=== PATIENT | female | born 1975 | race Hispanic/Latino ===

== ENCOUNTER → 2016-09-17 | Outpatient (CLI) | payer OTHER ==
[~2016-09-17] MED LIST: AC325T PO; AMOX500C2 PO; CLOM25CA2 PO; CLOMID PO; CYAN100053 IJ; DEXT1DRO8 OU; FAMO20TA13 PO; FNT25TD TD; GABA600T2 PO; GBPN300C PO; LD5PT TOP; LISI10TA2 PO; LISI1TAB6 PO; LISI40TA PO; LORA2ORA4 PO; LVT.05T PO; MAGN800O PO; METF-472 PO; METO100T PO; MTF500T PO; MULT-608 PO; NYST1000 PO; OXC5T PO; PHEN37.555 PO; POTA10CA43 PO; SENN1TAB76 PO; SPIR100T28 PO; ZOLP10TA5 PO
--- NOTE | 2016-09-17 13:12 | Diagnostic Imaging Report ---
PROCEDURE: CT abdomen and pelvis without contrast. TECHNIQUE: Multiple contiguous axial images were obtained through the abdomen and pelvis without the use of intravenous contrast. INDICATION: Right lower quadrant abdominal pain. Hypoactive bowel sounds. COMPARISON: 08/15/2011. FINDINGS: Included views of the lung bases are unremarkable. CT abdomen: Normal appendix is identified. Small bowel loops are nondistended. There is somewhat thickened appearance of the wall of the distal tip of the cecum where it measures approximately 7-8 mm in thickness. There is cholelithiasis (image 23, series 2). Faint nonobstructive renal calculus is noted within the inferior pole of the left kidney. Hypodense cyst is also noted on the left. Otherwise, the kidneys, spleen, liver, and pancreas have a normal noncontrast CT appearance. There is small amount of free fluid within the lower abdomen extending into the pelvis. There is no loculated fluid collection or free air. No abnormal mesenteric or retroperitoneal adenopathy is seen. Bony structures show no acute abnormalities. CT pelvis: Large masslike structure is identified extending from the posterior left lateral wall of the uterus. It measures approximately 6.9 x 7.2 cm on today's exam. This is increased in size compared to 3.4 x 3.2 cm on prior study. Findings are likely on the basis of large fibroid. The urinary bladder is minimally distended and unopacified. There is small amount of free fluid within the pelvis. There is no loculated air-fluid collection or free air. No abnormal adenopathy is seen. Bony structures show no acute abnormalities. IMPRESSION: 1. No CT evidence of acute appendicitis. 2. Abnormal focal thickened appearance to the wall of the distal tip of the cecum. This may be artifactual and related to incomplete distention. Underlying infectious or inflammatory colitis or even colonic neoplasm cannot be excluded. 3. Interval increase in size of large uterine mass; likely fibroid. 4. Small amount of free fluid within the pelvis and lower abdomen. 5. Small nonobstructive left renal calculus. 6. Cholelithiasis. Dictated by: Dictated on workstation # [id number]
== END ==
LOC: RAD 12:03
PROVIDERS: ATTEND Nurse Practitioner Family
DX: K63.89 Other specified diseases of intestine (principal); K80.20 Calculus of gallbladder without cholecystitis without obstruction; N20.0 Calculus of kidney; D25.9 Leiomyoma of uterus, unspecified
CPT/HCPCS: 74176

== ENCOUNTER → 2016-10-09 | Outpatient (CLI) | payer OTHER ==
--- NOTE | 2016-10-09 17:05 | Diagnostic Imaging Report ---
EXAMINATION: Transabdominal and transvaginal pelvic ultrasound. INDICATION: Enlarged cervix and uterus. FINDINGS: The uterus is 8.8 x 7 x 6.6 cm in size. It is heterogenous. There is a 6.5 x 6.8 x 7 cm mass seen along the posterior aspect of the uterus which is suggestive of a fibroid. The endometrial stripe is not well-seen with an area of thickening and increased vascularity in the central aspect of the uterus caudally potentially representing an abnormally thickened endometrium with abnormal vascularity. Underlying hyperplasia, carcinoma, or polyp is not excluded. The ovaries are obscured by the fibroid and bowel gas. IMPRESSION: 1. Heterogenously enlarged uterus with suggestion of a dominant large fibroid measuring at 7 cm arising from the posterior aspect of the uterine body. 2. There is limited evaluation of the endometrium. A central area of thickening in the lower aspect of the uterus with increased vascularity could represent an abnormal endometrium with an underlying lesion such as polyp, hyperplasia, or carcinoma. Consider endometrial tissue sampling. Report faxed to Dr. Ferdinand Gibson at 5:05 p.m. 10/09/2016/cb Dictated by: Dictated on workstation # [id number]
== END ==
LOC: RAD 12:39
PROVIDERS: ATTEND Obstetrics & Gynecology
DX: N85.2 Hypertrophy of uterus (principal)
CPT/HCPCS: 76830; 76856

== ENCOUNTER 2016-10-23 12:32 | Day surgery (SDC) | payer OTHER ==
[~2016-10-23] VITALS: Ht 157.5 cm; Wt 64.2 kg
[2016-10-23] MEDS ORDERED: LACTATED RINGERS 1,000 ML IV ONE (12:45)
[2016-10-23] MEDS ORDERED: LACTATED RINGERS 1,000 ML IV SCH (13:00)
--- NOTE | 2016-10-23 13:10 | Progress Note-Pre Operative ---
Pre-Operative Progress Note H&P Reviewed The H&P was reviewed, patient examined and no changes noted. Date Seen by Provider: Oct 23, 2016 Time Seen by Provider: 13:09 Date H&P Reviewed: Oct 23, 2016 Time H&P Reviewed: 13:10 Pre-Operative Diagnosis: abnormal radiological finding, lower abdominal pain LEIF RODARTE DO Oct 23, 2016 13:10
[2016-10-23] MEDS ORDERED: PROPOFOL INJECTION 50 ML IV ONE (13:27)
[2016-10-23] MEDS ORDERED: MIDAZOLAM 2 MG/2 ML (VERSED) VIAL ONE (13:27)
--- NOTE | 2016-10-23 14:05 | Progress Note-Post Operative ---
Post-Operative Progess Note Surgeon (s)/Product Marketing Manager (s) Surgeon LEIF RODARTE DO Product Marketing Manager: na Pre-Operative Diagnosis abnormal radiological finding, lower abdominal pain Post-Operative Diagnosis sigmoid polyp Procedure & Operative Findings Date of Procedure 10/23/16 Procedure Performed/Findings colonoscopy hot bx polypectomy Anesthesia Type per oracle engineer Estimated Blood Loss Estimated blood loss (mL): none Specimens/Packing Specimens Removed sigmoid polyp LEIF RODARTE DO Oct 23, 2016 14:05
--- NOTE | 2016-10-23 14:06 | Discharge Inst-Simple/Standard ---
Discharge Inst-Standard Patient Instructions/Follow Up Plan of Care/Instructions/FU: 2 weeks Mala Activity as Tolerated: Yes Discharge Diet: Regular Diet LEIF RODARTE DO Oct 23, 2016 14:06
[2016-10-23 14:40] VITALS: BP 156/89
[2016-10-23 15:10] VITALS: BP 152/82
[2016-10-23 15:25] VITALS: BP 152/82
--- NOTE | 2016-10-23 15:37 | OPERATIVE REPORT ---
DATE OF SERVICE: 10/23/2016 PREOPERATIVE DIAGNOSIS: Abnormal radiological findings on CT scan with lower abdominal pain. POSTOPERATIVE DIAGNOSIS: Sigmoid polyp. PROCEDURE: Colonoscopy with hot biopsy polypectomy. SURGEON: Leif Medeiros DO ANESTHESIA: Per DIRECTOR CORPORATE SECURITY. ESTIMATED BLOOD LOSS: None. COMPLICATIONS: None. INDICATIONS: The patient is a 41-year-old female who had a CT scan showing some questionable abnormal thickening or incomplete distention of the cecum. Further evaluation by colonoscopy is recommended. She understands risks and benefits of procedure and wished to proceed with procedure. Consent was signed in the chart. PROCEDURE: The patient was taken to the endoscopy suite, placed in left lateral recumbent position. Timeout was performed. Digital rectal exam was performed. There were no palpable polyps or ulcerations. There was a large uterus that was able to be palpated, which feels to be a large fibroid, which is consistent with CT scan. Scope was inserted into the rectum and advanced all the way to the cecum with minimal difficulty. Prep was adequate. There are no polyps, masses or ulcerations visualized within the cecum. The scope was then slowly retracted back. There were no polyps, mass or ulcerations visualized in the ascending, transverse, and descending colon. Within the sigmoid colon, a small hyperplastic appearing polyp was biopsied using hot biopsy polypectomy. The scope was continued to be slowly retracted back down the rectum where it was also retroflexed noting no other pathology. Scope was then returned to its normal position, slowly withdrawn until completely removed. RECOMMENDATIONS: The patient will need repeat colonoscopy in 5 years if anything other than hyperplastic, otherwise would follow up with routine screening guidelines. If she has any problems prior to that, she should be reevaluated at that time. The patient would likely benefit from consultation with gynecology if she has not yet. The patient will follow up in the office in two weeks to discuss results. Job ID: [id number] DocumentID: [id number] Dictated Date: 10/23/2016 14:10:00 Summer Analyst Date: 10/23/2016 14:58:27 Dictated By: LEIF MEDEIROS DO [facility] HOSPITALRahul
== END 2016-10-23 15:25 | disposition home or self-care (01) ==
LOC: ENDO 12:32
PROVIDERS: ATTEND Surgery
DX: K63.5 Polyp of colon (principal); I10 Essential (primary) hypertension
CPT/HCPCS: 84703; 88305

== ENCOUNTER → 2017-08-19 | Outpatient (CLI) | payer OTHER ==
--- NOTE | 2017-08-19 10:24 | Diagnostic Imaging Report ---
INDICATION: Routine screening. COMPARISON: No prior mammograms are available for comparison. This is a baseline study. TECHNIQUE: 2D and 3D bilateral screening mammography was performed with CAD. FINDINGS: Both breasts are heterogeneously dense, limiting the sensitivity of mammography. There is an intramammary lymph node in the upper outer right breast. There are scattered benign-appearing calcifications bilaterally. No spiculated mass or malignant appearing microcalcifications are seen. The axillae are unremarkable. IMPRESSION: No mammographic features suspicious for malignancy are identified. ACR BI-RADS Category 2: Benign findings. Result letter will be mailed to the patient. Note: At least 10% of breast cancer is not imaged by mammography. Dictated by: Dictated on workstation # [id number]
== END ==
LOC: RAD 08:25
PROVIDERS: ATTEND Nurse Practitioner Primary Care
DX: Z12.31 Encounter for screening mammogram for malignant neoplasm of breast (principal)
CPT/HCPCS: 77067

== ENCOUNTER → 2020-03-31 | Outpatient (CLI) | payer OTHER ==
--- NOTE | 2020-03-31 11:48 | Diagnostic Imaging Report ---
PROCEDURE: Pelvic comp/transvaginal sonogram. TECHNIQUE: Complete transabdominal and transvaginal pelvic ultrasound was performed. In addition, limited pelvic Doppler was performed. INDICATION: Intramural leiomyoma of the uterus. FINDINGS: The uterus measures 10.0 x 6.0 cm. There is an anterosuperior fibroid measuring 4.2 x 3.3 cm. Inferior fibroid measures 7.1 x 6.5 cm. Endometrium is 11 mm in thickness. Right ovary measures 2.6 x 2.3 x 2.4 cm and the left ovary measures 3.4 x 2.8 x 2.2 cm. The ovaries contain follicles. There is blood flow to both ovaries. No adnexal mass or free fluid is detected. IMPRESSION: 1. Fibroid uterus. 2. No other significant abnormality is detected. Dictated by: Dictated on workstation # [id number]
== END ==
LOC: RAD 09:56
PROVIDERS: ATTEND Obstetrics & Gynecology
DX: D25.1 Intramural leiomyoma of uterus (principal)
CPT/HCPCS: 76830; 76856

== ENCOUNTER 2020-04-14 05:27 | Outpatient (RCR) | payer OTHER ==
[~2020-04-14] VITALS: Ht 153 cm; Wt 78.2 kg
[~2020-04-14 05:27] MED LIST changes: -LISI10TA2 PO; +LISI10TA25 PO; +LISI1TAB46 PO; +OMEP20CA18 PO
== END 2020-04-14 09:48 | disposition home or self-care (01) ==
LOC: PREOP 05:27
PROVIDERS: ATTEND Obstetrics & Gynecology
DX: Z01.812 Encounter for preprocedural laboratory examination (principal); D25.9 Leiomyoma of uterus, unspecified; Z20.822 Contact with and (suspected) exposure to COVID-19
CPT/HCPCS: 87635

== ENCOUNTER 2020-04-18 06:30 | Day surgery (SDC) | payer OTHER ==
[~2020-04-18] VITALS: Ht 153 cm; Wt 78.2 kg
[2020-04-18] VITALS (12 sets, daily range): BP systolic 88–128; BP diastolic 47–86
[2020-04-18] MEDS ORDERED: MIDAZOLAM 2 MG/2 ML (VERSED) VIAL ONE (06:53)
[2020-04-18] MEDS ORDERED: fentaNYL INJECTION 100 MCG/2 ML AMP ONE (06:53)
[2020-04-18] MEDS ORDERED: BUPIVACAINE 0.25% 30 ML (SENSORCAINE) VIAL ONE (06:54)
[2020-04-18] MEDS ORDERED: ROCURONIUM 10 MG/ML 5 ML SYRINGE IV ONE ×2 (06:56→08:57)
[2020-04-18] MEDS ORDERED: ONDANSETRON 4 MG/2 ML (SDV) Z0FRAN ONE (06:56)
[2020-04-18] MEDS ORDERED: proPOfol 200 MG/20 ML (DIPRIVAN) VIAL IV ONE (06:56)
[2020-04-18] MEDS ORDERED: GLYCOPYRROLATE 0.2 MG/ML (ROBINUL) 2 ML VIAL ONE (06:56)
[2020-04-18] MEDS ORDERED: LIDOCAINE PF 2% 5 ML (XYLOCAINE) VIAL ONE (06:56)
[2020-04-18] MEDS ORDERED: NEOSTIGMINE 3 MG/3 ML VIAL ONE (06:56)
[2020-04-18] MEDS ORDERED: metroNIDAZOLE 500MG/100ML IVPB 100 ML ONE (07:14)
[2020-04-18] MEDS ORDERED: ceFAZolin 2 GM IV Premixed 50 ML ONE (07:14)
[2020-04-18] MEDS ORDERED: FAMOTIDINE 20MG/2ML IV (PEPCID) IV ONE (07:15)
[2020-04-18] MEDS ORDERED: FAMOTIDINE 20MG/2ML IV (PEPCID) ONE (07:15)
--- NOTE | 2020-04-18 07:21 | Progress Note-Pre Operative ---
Pre-Operative Progress Note H&P Reviewed The H&P was reviewed, patient examined and no changes noted. Date Seen by Provider: Apr 18, 2020 Time Seen by Provider: 07:15 Date H&P Reviewed: Apr 18, 2020 Time H&P Reviewed: 07:10 Pre-Operative Diagnosis: Fibroid uterus, Pelvic pain JAMES ALEGRE DO Apr 18, 2020 07:21
[2020-04-18] MEDS: LACTATED RINGERS 1,000 ML IV PRN ×3 (07:25→10:38)
[2020-04-18] MEDS ORDERED: IBUP-844 PO (07:26)
[2020-04-18] MEDS ORDERED: HYDR-34 PO (07:26)
[2020-04-18] MEDS ORDERED: SMT80CT PO (07:26)
[2020-04-18] MEDS ORDERED: DCS100C PO (07:26)
--- NOTE | 2020-04-18 07:28 | Discharge Inst-Women's Service ---
Discharge Inst-Women's Serv Depart Medication/Instructions New, Converted or Re-Newed RX: RX on Chart Problems Reviewed?: Yes Consults/Follow Up Additional Follow Up: Yes Orders/Referrals Dr. Gibson in 7-10 days and in 8 weeks Activity Activity: Activity as Tolerated Driving Instructions: No Driving for 1 Week NO SMOKING: NO SMOKING Nothing Inside Vagina: No Douching, No Clawson, No Tampons Diet Discharge Diet: No Restrictions Symptoms to Report to : Bleeding Excessive, Pain Increased, Fever Over 101 Degrees F, Vaginal Bleeding Increase, Questions/Concerns For Any Problems or Questions: Contact Your Physician Skin/Wound Care Infection Signs and Symptoms: Increased Redness, Foul Odor of Wound, Increased Drainage, Skin Itchy or Has a Rash, Increased Swelling, Temperature Above 101 F Operative Area Clean and Dry: Keep Incision Clean/Dry Stitches/Brittnee/Dermabond: Dermabond, Care of Stitches Bathing Instructions: JAMES Ballard DO Apr 18, 2020 07:28
[2020-04-18] MEDS ORDERED: ZOLPIDEM 5 MG (AMBIEN) TAB PO PRN (07:30)
[2020-04-18] MEDS ORDERED: LACTATED RINGERS 1,000 ML IV SCH (07:30)
[2020-04-18] MEDS ORDERED: HYDROcodone/APAP 7.5 MG/325 MG (LORTAB, LORCET PLUS) TABLET PO PRN (07:30)
[2020-04-18] MEDS ORDERED: ANTACID SUSP 30 ML UDC (MYLANTA) PO PRN (07:30)
[2020-04-18] MEDS ORDERED: SIMETHICONE 80 MG (MYLICON) CHEW PO PRN (07:30)
[2020-04-18] MEDS ORDERED: ONDANSETRON 4 MG/2 ML (SDV) Z0FRAN IV PRN (07:30)
[2020-04-18] MEDS ORDERED: CHLORASEPTIC LOZENGE MM PRN (07:30)
[2020-04-18] MEDS ORDERED: DOCUSATE SODIUM 100 MG (COLACE) CAP PO PRN (07:30)
[2020-04-18] MEDS ORDERED: metroNIDAZOLE 500MG/100ML IVPB 100 ML IV ONE (07:45)
[2020-04-18] MEDS ORDERED: ceFAZolin 2 GM IV Premixed 50 ML IV ONE (07:45)
[2020-04-18 07:51] LABS: BASOPHILS % (AUTO) 0 % (0-10); EOSINOPHILS # (AUTO) 0.2 10^3/uL (0.0-0.3); EOSINOPHILS % (AUTO) 2 % (0-10); HEMATOCRIT 38 % (35-52); HEMOGLOBIN 12.8 g/dL (11.5-16.0); LYMPHOCYTES # (AUTO) 1.7 10^3/uL (1.0-4.0); LYMPHOCYTES % (AUTO) 19 % (12-44); MEAN CORPUSCULAR HEMOGLOBIN 30 pg (25-34); MEAN CORPUSCULAR HGB CONC 34 g/dL (32-36); MEAN CORPUSCULAR VOLUME 89 fL (80-99); MONOCYTES # (AUTO) 0.5 10^3/uL (0.0-1.0); MONOCYTES % (AUTO) 6 % (0-12); NEUTROPHILS # (AUTO) 6.4 10^3/uL (1.8-7.8); NEUTROPHILS % (AUTO) 73 % (42-75); PLATELET COUNT 302 10^3/uL (130-400); WHITE BLOOD COUNT 8.8 10^3/uL (4.3-11.0)
[2020-04-18] MEDS ORDERED: PHENYLEPHRINE 100 MCG/ML 10 ML (ANESTHESIA) SYR ONE (08:13)
[2020-04-18] MEDS ORDERED: VASOPRESSIN INJECTION 20 UNIT/ML VIAL ONE (08:20)
[2020-04-18] MEDS ORDERED: NS (IVPB) 100 ML ONE (08:25)
[2020-04-18] MEDS ORDERED: INDIGO CARMINE 8 MG/ML 5 ML AMP ONE (10:04)
[2020-04-18] MEDS ORDERED: FUROSEMIDE 40 MG/4 ML INJ (LASIX) ONE (10:04)
[2020-04-18] MEDS ORDERED: SEVOFLURANE (ULTANE) 15 ML INHAL SOLN ONE (10:04)
[2020-04-18] MEDS ORDERED: HYDROmorphone 2 MG/ML VIAL (DILAUDID) ONE (10:20)
[2020-04-18] MEDS ORDERED: ONDANSETRON 4 MG/2 ML (SDV) Z0FRAN IVP PRN (11:15)
[2020-04-18] MEDS ORDERED: morphine INJ 10 MG/ML 1ML (SYR OR VIAL) IVP ONE (11:15)
[2020-04-18] MEDS ORDERED: HYDROmorphone 2 MG/ML VIAL (DILAUDID) IV ONE (11:15)
--- NOTE | 2020-04-18 13:26 | Anesthesia-General Post-Op ---
General Patient Condition Mental Status/LOC: Same as Preop Cardiovascular: Satisfactory Nausea/Vomiting: Absent Respiratory: Satisfactory Pain: Controlled Complications: Absent Post Op Complications Complications None Follow Up Care/Instructions Patient Instructions None needed. Anesthesia/Patient Condition Patient Condition Patient was seen after the procedure and she was doing well, no complaints, stable vital signs, no apparent adverse anesthesia problems. TRAYC REIS DO Apr 18, 2020 13:26
[2020-04-18] MEDS: KETOROLAC 30 MG/ML VIAL IV PRN ×2 (15:50→21:01)
--- NOTE | 2020-04-18 16:28 | OPERATIVE REPORT ---
DATE OF SERVICE: PREOPERATIVE DIAGNOSES: 1. A 44-year-old female with chronic pelvic pain. 2. Fibroid uterus. POSTOPERATIVE DIAGNOSES: 1. A 44-year-old female with chronic pelvic pain. 2. Fibroid uterus. PROCEDURE: Robotic-assisted total laparoscopic hysterectomy, weighing greater than 500 grams, bilateral salpingectomy, left oophorectomy and vaginal laceration repair. SURGEON: Ferdinand Gibson DO PROGRAM SUPPORT CLERK: Kristi Malone DNP, who was necessary for manipulation and retraction throughout the procedure. ANESTHESIA: General endotracheal. ESTIMATED BLOOD LOSS: 200 mL. URINE OUTPUT: 200 mL clear at the end of the procedure. FLUIDS: 2200 mL lactated Ringer's solution. FINDINGS: A bulky uterus with multiple fibroids, the largest being in the posterior wall of the uterus, intramural. There was also a large semi-pedunculated fibroid/subserosal on the uterine fundus. SPECIMEN SENT: Uterus, bilateral fallopian tubes and left ovary. INDICATIONS FOR PROCEDURE: This 44-year-old female who was a consultation to my office from the [facility] due to ongoing issues with chronic pelvic pain, discomfort, pelvic pressure and pain. The patient reported that this has been an ongoing issue and she has had multiple surgeries scheduled to have this addressed; however, they have all been canceled due to her financial situation. I discussed with the patient in detail the indications for this procedure, the size of her fibroids, one measuring upwards of 8 cm. I discussed with the patient the risk of the procedure including risk of bleeding, infection, damage to surrounding structures including, but not limited to bowel, bladder, or kidneys, possible need for reoperation, postoperative complications that may occur, risk from anesthesia, recovery timeframe, risk from blood transfusion and even . After everything was discussed with the patient in detail, consent was obtained in the preoperative area and the patient was taken to the operating room. OPERATIVE REPORT IN DETAIL: Once in the operating room, general anesthesia was found to be adequate, placed in dorsal lithotomy position, prepped and draped in normal sterile fashion. A timeout was performed. Sanders catheter was placed using sterile technique. Weighted speculum was inserted to the patient's vagina. Right angle retractor was used to visualize the cervix. It was grasped at 12 o'clock position using a long Allis clamp and 0 Vicryl suture was then placed through the anterior lip of the cervix using my retraction point. I removed the Allis clamp at that point. I then gently sounded the uterine cavity, depth was found to be 10 cm. I selected 10 cm Elizabeth uterine manipulator tip and a 4 cm colpotomy ring. I advanced the manipulator tip into the uterus deploying the balloon and advanced the colpotomy ring around the vaginal fornix. Manipulation is appreciated on bimanual. However, this was limited due to the size of the fibroid. I then performed a change of gloves and took my attention to the abdomen where supraumbilically, infiltrated this area using 0.25% Marcaine and make an 8 mm incision with a knife and directed Veress needle through the incision until intraperitoneal placement was confirmed using saline drop test. An opening pressure 2 mmHg was noted, proceeded to max pressure of 15 mmHg, at which point I removed the Veress needle and introduced an 8 mm blunt laparoscopic da Tyra camera trocar. Once this was in place, I confirmed intraperitoneal placement using the da Tyra laparoscope. I then had the patient placed in steep Trendelenburg after I briefly visualized the upper abdominal anatomy was found to be grossly normal. Once in steep Trendelenburg, I am able to visualize all my pelvic anatomy defined in my findings above. I placed two lateral trocars using both 8 mm trocars approximately 10 cm lateral to my suprapubic trocar site. Once these trocars were placed under direct visualization and laparoscope, I decided I possible need an administrative services assistant port and I placed a 12 mm trocar in the right upper quadrant down the midclavicular line. Once this was in place under direct visualization and laparoscope by bringing the da Tyra robot docked in appropriate fashion placing the fenestrated bipolar graspers in left hand and monopolar kim in the right hand. I first started the procedure by dissecting the fibroid away from the uterus in a myomectomy fashion. Percutaneous insertion of a long needle was introduced into the anterior abdomen under direct visualization of laparoscope and guidance of the robotic instruments. I am able to infiltrated all margins of the subserosal and intramural fibroids using vasopressin, a concentration of 20 units in 100 mL normal saline. Once adequate blanching was noted, the needle was removed. I then proceeded with making an incision on the serosa of the uterus and taking a nice grasped of the fibroid using a laparoscopic tenaculum was then dissected away from its surrounding myometrium. This was done with both of the fibroids significantly reduces the size of the uterus allowing me to see the posterior cul-de-sac at this point. This fibroid was placed in the right cul-de-sac. I then able to perform the dissection of the hysterectomy. The left fallopian tube was partially avulsed when the fibroid in the posterior cul-de-sac was removed because of its significant adhesions. Therefore, I decided to take the left ovary. I started at the left infundibulopelvic ligament, bipolar cauterized and transected using the vessel sealer. I then grasped the round ligament on the left side, bipolar cauterized and transected using the vessel sealer. I was then able to grasp the entire broad ligament with the vessel sealer and bipolar cauterized and transected with the vessel sealer down to the level of the lower uterine segment, at which point I the anterior and posterior leaflet of the broad ligament. Anterior leaflet was taken around to the anterior vaginal fornix, posterior leaflet was taken around the posterior vaginal fornix. This allows me to skeletonize the uterine vessels laterally, which I bipolar cauterized and transected using the vessel sealer. I then on the right side performed the following dissection, start at the uteroovarian ligament, bipolar cauterized and transected using the vessel sealer. I then created a window in the mesosalpinx and took this dissection down the mesosalpinx using the vessel sealer transecting the fallopian tube away from its surrounding blood supply. I then grasped the round ligament, which I bipolar cauterized and transected using vessel sealer. I then was able to grasp the entire broad ligament, which I bipolar cauterized and transected using the vessel sealer down to the level of the lower uterine segment, at which point I the anterior and posterior leaflets of the broad ligament. Anterior leaflet was taken to the anterior vaginal fornix, posterior leaflet was taken around to the posterior vaginal fornix. This allows me to skeletonize the uterine vessels laterally, which I then bipolar cauterized and transected using vessel sealer. I then am able to create a colpotomy at 12 o'clock position using monopolar kim and took this circumferentially around the vaginal fornix amputating the cervix away from the vaginal cuff. The cervix and uterus were then removed with bilateral fallopian tubes and left ovary through the vagina. There are some intramural fibroids that made this difficult due to the bulkiness of the uterus. I then had to bivalve the larger 8 cm fibroid in two separate pieces in order to get into removed through the vagina. Once this was bivalved and removed, I also removed the smaller pedunculated fibroid through the vagina as well, after which there was no active bleeding noted from any of my vaginal cuff. I then proceeded with reapproximating the lateral vaginal apices of the vaginal cuff using 2-0 Vicryl suture in a [id number] fashion, colposuspending into the uterosacral ligaments. I then reapproximated the remainder of the vaginal cuff using 2-0 V-Loc in a running fashion, after which there was no active bleeding noted from any of my dissection planes. Bilateral ureteral peristalsis was identified and indigo carmine is given IV and seen coming out in the catheter. I then copiously irrigated the pelvis using normal saline. Once again, there was no active bleeding noted from any of my dissection planes. I undocked the da Tyra robot and proceeded with remainder of the case laparoscopically. I copiously irrigated the pelvis once more laparoscopically. I then covered all my planes of dissection with Surgiflo hemostatic agent to ensure excellent postoperative hemostasis. I then had the patient taken out of steep Trendelenburg and removed the lateral trocars under direct visualization and laparoscope. The right upper quadrant trocar was reapproximated fascially using a Edvin-Delmer and 0 Vicryl suture. Once this was done, the skin of that incision was reapproximated using 4-0 Monocryl running subcuticular. The suprapubic trocar was left in place to release insufflation and introduced 10 mL of 0.25% Marcaine into the peritoneal cavity for postoperative pain management. I then removed this trocar as well. The skin of those 3 remaining incisions were reapproximated using 4-0 Monocryl in interrupted subcuticular stitches. Dermabond was applied to the incisions and Band-Aids were placed over these as well. I then took my attention to the vagina where there are two lateral vaginal wall lacerations have to be repaired using 2-0 Vicryl suture in a running locking fashion, after which these were noted to be hemostatic. Sanders catheter was left in place. Lap and sponge counts were correct at the end of the procedure. Instrument counts correct as well. Two grams of Ancef, 500 mg of Flagyl were given preoperatively for infection prophylaxis. Job ID: [id number] DocumentID: [id number] Dictated Date: 04/18/2020 11:36:47 Piano Bench Assembler Date: 04/18/2020 16:28:08 Dictated By: DO KIM MULLIGAN
[2020-04-19] MEDS ORDERED: IBUPROFEN 600 MG (MOTRIN) TAB PO SCH (08:00)
== END 2020-04-18 22:00 ==
LOC: SDC 06:30 → WS 11:57 → SDC 22:00
PROVIDERS: ATTEND Obstetrics & Gynecology
DX: D25.1 Intramural leiomyoma of uterus (principal); D25.0 Submucous leiomyoma of uterus; D25.2 Subserosal leiomyoma of uterus; N84.0 Polyp of corpus uteri; N83.8 Other noninflammatory disorders of ovary, fallopian tube and broad ligament; N83.202 Unspecified ovarian cyst, left side; I10 Essential (primary) hypertension; K21.9 Gastro-esophageal reflux disease without esophagitis; G89.29 Other chronic pain; Z79.899 Other long term (current) drug therapy
CPT/HCPCS: 36415; 84703; 85025; 86850; 86900; 86901; 87081; 88307; 94664; 94760